=== PATIENT | male | born 1960 | race Caucasian/White ===

== ENCOUNTER 2020-03-24 10:52 | Observation (INO) | payer OTHER ==
--- OUTSIDE RECORDS SUMMARY | 2020-03-24 10:58 | XMS REPORT | Continuity of Care Document ---
:1960 Author Organization [facility] t Address [address] [place] [address] Care Team Providers Name Role Phone Unavailable Unavailable Unavailable Problems This patient has no known problems. Allergies, Adverse Reactions, Alerts This patient has no known allergies or adverse reactions. Medications This patient has no known medications. Procedures This patient has no known procedures. Encounters Start End Encounter Admission Attending Care Care Encounter Source Date/Time Date/Time Type Type Clinicians Facility Department ID 2019-06-25 Outpatient [facility] [id number] 09:19:46 l [facility] 2019-10-18 2019-10-18 Outpatient [facility] [id number] 11:35:00 11:35:00 l [facility] 2019-10-09 2019-10-09 Outpatient [facility] [id number] 05:27:00 05:27:00 l [facility] 2019-05-23 2019-05-23 Outpatient [facility] [id number] 13:32:00 13:32:00 l [facility] Results This patient has no known results.
[2020-03-24] MEDS ORDERED: METHYLPREDNISOLONE 125 MG INJ ONE (11:14)
[2020-03-24] MEDS ORDERED: dexAMETHasone 10 MG/ML VIAL ONE (11:15)
[2020-03-24] MEDS ORDERED: NA CHLORIDE 0.9% 1,000 ML ONE ×2 (11:15→13:12)
[2020-03-24] MEDS ORDERED: FAMOTIDINE 20 MG/2 ML VIAL IV ONE (11:15)
[2020-03-24] MEDS ORDERED: DIPHENHYDRAMINE 50 MG/ML VIAL ONE ×2 (11:15→11:17)
[2020-03-24] MEDS ORDERED: EPINEPHRINE/PF 1 MG/ML AMP ONE (11:15)
[2020-03-24 11:19] LABS: Absolute Lymphocytes (CBC) 1.6 K/uL (0.7-4.9); Basophils % 1.1 % (0-1.3); Hematocrit 41.9 % (39.6-49.0); Lymphocytes % 13.1 % (15.3-44.8); MPV 8.1 fL (7.6-11.3); RBC Red Blood Cell Count 4.85 M/uL (4.33-5.43)
[2020-03-24 11:24] LABS: Protime INR 1.12
[2020-03-24] MEDS ORDERED: ALBUTEROL 2.5 MG/3 ML NEB SOL ONE (11:28)
[2020-03-24] MEDS ORDERED: IPRATROPIUM BROM 0.5MG/2.5ML ONE (11:28)
--- NOTE | 2020-03-24 11:37 | RAD REPORT ---
EXAM DESCRIPTION: RAD - Chest Single View - 03/24/2020 11:21 am CLINICAL HISTORY: COUGH COMPARISON: April 2010 TECHNIQUE: AP portable chest image was obtained 03/24/2020 11:21 am . FINDINGS: Lungs are clear. Low lung volumes accentuate interstitial pattern. Heart and vasculature a re normal. No measurable pleural effusion and no pneumothorax. No acute bony abnormality seen. No acu te aortic findings suspected. IMPRESSION: No acute cardiopulmonary process. No significant change from comparison study.
[2020-03-24 11:55] LABS: ALT/SGPT 53 U/L (12-78); AST/SGOT 48 U/L (15-37); Albumin 3.1 g/dL (3.4-5.0); Alkaline Phosphatase 85 U/L (45-117); BUN Blood Urea Nitrogen 11 mg/dL (7-18); Bicarbonate 30 mmol/L (21-32); Bilirubin Direct 0.2 mg/dL (0-0.2); Bilirubin Total 0.9 mg/dL (0.2-1.0); Glucose Level 116 mg/dL (74-106); Magnesium 2.4 mg/dL (1.8-2.4); NT PRO-BNP 46 pg/mL (<125); Potassium 3.9 mmol/L (3.5-5.1); Protein, Total 8.5 g/dL (6.4-8.2); Sodium Level 134 mmol/L (136-145); Troponin (Emerg Dept Use Only) < 0.02 ng/mL (0.0-0.045)
--- NOTE | 2020-03-24 12:14 | EDPHYS ---
Physician Documentation [facility] Name: Walker Valdez Age: 59 yrs Sex: Male : 1960 Arrival Date: 03/24/2020 Time: 10:53 Bed 2 Private MD: Indra Arevalo HPI: 03/24 11:03 This 59 yrs old Male presents to ER via Ambulatory with complaints of apryl Allergic Reaction, Swelling Of Tongue. 11:03 The patient presents with difficulty swallowing, swelling of the lips, swelling of the apryl tongue. Onset: The symptoms/episode began/occurred 2 hour(s) ago. Associated signs and symptoms: The patient has no apparent associated signs or symptoms. Possible causes: The patient has no known obvious cause for the symptoms. At home the patient or guardian has treated the symptoms with nothing. Severity of symptoms: At their worst the symptoms were moderate. The patient has not experienced similar symptoms in the past. Historical: - Allergies: 11:02 "unkown abx"; em - Home Meds: 11:34 aspirin 325 mg Oral tab 1 tab once daily [Active]; ramipril 10 mg Oral cap 1 cap once ph daily [Active]; hydrocodone-acetaminophen 10-325 mg Oral tab 1 tab every 6 hours [Active]; cefadroxil 500 mg oral cap 1 cap every 8 hours [Active]; gabapentin 600 mg oral tab 1 tab 3 times per day [Active]; atorvastatin 80 mg oral tab 1 tab once daily [Active]; - PMHx: 11:02 Hypertension; Hyperlipidemia; Chronic pain; em - Immunization history:: Adult Immunizations unknown. - Social history:: Smoking status: unknown. ROS: 11:04 Constitutional: Negative for fever, chills, and weight loss, Eyes: Negative for injury, apryl pain, redness, and discharge, Neck: Negative for injury, pain, and swelling, Respiratory: Negative for shortness of breath, cough, wheezing, and pleuritic chest pain, Abdomen/GI: Negative for abdominal pain, nausea, vomiting, diarrhea, and constipation, Back: Negative for injury and pain, : Negative for injury, bleeding, discharge, and swelling, MS/Extremity: Negative for injury and deformity, Skin: Negative for injury, rash, and discoloration, Neuro: Negative for headache, weakness, numbness, tingling, and seizure, Psych: Negative for depression, anxiety, suicide ideation, homicidal ideation, and hallucinations, Allergy/Immunology: Negative for hives, rash, and allergies, Endocrine: Negative for neck swelling, polydipsia, polyuria, polyphagia, and marked weight changes, Hematologic/Lymphatic: Negative for swollen nodes, abnormal bleeding, and unusual bruising. 11:04 ENT: Positive for difficulty handling secretions, difficulty swallowing, rhinorrhea, tongue swelling, moderate. Exam: 11:04 Constitutional: This is a well developed, well nourished patient who is awake, alert, apryl and in no acute distress. Eyes: Pupils equal round and reactive to light, extra-ocular motions intact. Lids and lashes normal. Conjunctiva and sclera are non-icteric and not injected. Cornea within normal limits. Periorbital areas with no swelling, redness, or edema. Neck: Trachea midline, no thyromegaly or masses palpated, and no cervical lymphadenopathy. Supple, full range of motion without nuchal rigidity, or vertebral point tenderness. No Meningismus. Chest/axilla: Normal chest wall appearance and motion. Nontender with no deformity. No lesions are appreciated. Respiratory: Lungs have equal breath sounds bilaterally, clear to auscultation and percussion. No rales, rhonchi or wheezes noted. No increased work of breathing, no retractions or nasal flaring. Abdomen/GI: Soft, non-tender, with normal bowel sounds. No distension or tympany. No guarding or rebound. No evidence of tenderness throughout. Back: No spinal tenderness. No costovertebral tenderness. Full range of motion. Male : Normal genitalia with no discharge or lesions. Skin: Warm, dry with normal turgor. Normal color with no rashes, no lesions, and no evidence of cellulitis. MS/ Extremity: Pulses equal, no cyanosis. Neurovascular intact. Full, normal range of motion. Neuro: Awake and alert, GCS 15, oriented to person, place, time, and situation. Cranial nerves II-XII grossly intact. Motor strength 5/5 in all extremities. Sensory grossly intact. Cerebellar exam normal. Normal gait. Psych: Awake, alert, with orientation to person, place and time. Behavior, mood, and affect are within normal limits. 11:04 Head/face: Noted is swelling, that is moderate, of the left aspect of posterior pharynx, right aspect of posterior pharynx and tongue. 11:04 Cardiovascular: Rate: tachycardic, Rhythm: regular, Pulses: Pulses are 4+ in bilateral radial, brachial, femoral, popliteal, posterior tibial and and dorsalis pedis arteries.. Heart sounds: normal, Edema: is not appreciated, JVD: is not appreciated. Vital Signs: 10:58 Pulse 137; Resp 24; Pulse Ox 95% on R/A; em 11:03 BP 118 / 73; Weight 113.4 kg; Height 5 ft. 11 in. (180.34 cm); em 11:31 Temp 98.6(TE); tw2 11:31 BP 132 / 84; Pulse 117; Resp 18; Pulse Ox 100% on Nebulizer Mask; tw2 12:00 BP 143 / 71; Pulse 126; Resp 18; Pulse Ox 100% on 4 lpm NC; tw2 12:30 BP 109 / 52; Pulse 122; Resp 21; Pulse Ox 95% on 4 lpm NC; tw2 13:00 BP 120 / 73; Pulse 124; Resp 19; Pulse Ox 95% on 5 lpm NC; tw2 13:57 BP 120 / 70; Pulse 124; Resp 17; Pulse Ox 95% on 5 lpm NC; tw2 14:34 BP 129 / 88; Pulse 123; Resp 22; Pulse Ox 96% on 5 lpm NC; tw2 11:03 Body Mass Index 34.87 (113.40 kg, 180.34 cm) em MDM: 11:09 Differential diagnosis: anaphylaxis, angioedema, bronchospasm, foreign body or airway apryl obstruction urticaria. Data reviewed: vital signs, nurses notes, lab test result(s), EKG, radiologic studies, plain films. Data interpreted: school bus monitor: rate is 137 beats/min, rhythm is regular, Pulse oximetry: on room air is 95 %. Test interpretation: by ED physician or midlevel provider: ECG, plain radiologic studies. Counseling: I had a detailed discussion with the patient and/or guardian regarding: the historical points, exam findings, and any diagnostic results supporting the discharge/admit diagnosis, lab results, radiology results, the need for further work-up and treatment in the hospital. 11:12 Patient medically screened. [facility] 03/24 11:03 Order name: Basic Metabolic Panel; Complete Time: 12:12 [facility] 03/24 11:03 Order name: CBC with Diff; Complete Time: 12:12 [facility] 03/24 11:03 Order name: LFT's; Complete Time: 12:12 [facility] 03/24 11:03 Order name: Magnesium; Complete Time: 12:12 [facility] 03/24 11:03 Order name: NT PRO-BNP; Complete Time: 12:12 [facility] 03/24 11:03 Order name: PT-INR; Complete Time: 12:12 [facility] 03/24 11:03 Order name: Troponin (emerg Dept Use Only); Complete Time: 12:12 [facility] 03/24 11:03 Order name: XRAY Chest (1 view); Complete Time: 12:12 [facility] 03/24 14:06 Order name: CBC with Automated Diff [facility] 03/24 14:06 Order name: CBC with Automated Diff [facility] 03/24 14:06 Order name: Comprehensive Metabolic Panel [facility] 03/24 14:06 Order name: Comprehensive Metabolic Panel [facility] 03/24 11:03 Order name: EKG; Complete Time: 11:04 [facility] 03/24 11:03 Order name: Cardiac monitoring; Complete Time: 11:12 [facility] 03/24 11:03 Order name: EKG - Nurse/Tech; Complete Time: 11:24 [facility] 03/24 11:03 Order name: IV Saline Lock; Complete Time: 11:12 [facility] 03/24 11:03 Order name: Labs collected and sent; Complete Time: 11:12 [facility] 03/24 11:03 Order name: O2 Per Protocol; Complete Time: 11:12 [facility] 03/24 14:06 Order name: CONS Pharmacy Consult [facility] 03/24 14:06 Order name: Regular [facility] 03/24 11:03 Order name: O2 Sat Monitoring; Complete Time: 11:12 [facility] Administered Medications: 11:05 Drug: NS 0.9% 1000 ml Route: IV; Rate: 1 bolus; Site: right antecubital; tw2 12:30 Follow up: Response: No adverse reaction; IV Status: Completed infusion; IV Intake: tw2 1000ml 11:05 Drug: Benadryl 50 mg Route: IVP; Site: right antecubital; tw2 12:29 Follow up: Response: No adverse reaction tw2 11:07 Drug: EPINEPHrine 1mg/mL 1:1,000 0.4 ml Route: Sub-Q; Site: right upper arm; tw2 12:29 Follow up: Response: No adverse reaction tw2 11:07 Drug: SOLU-Medrol 125 mg Route: IVP; Site: right antecubital; tw2 12:29 Follow up: Response: No adverse reaction tw2 11:09 Drug: Pepcid 40 mg Route: IVP; Site: right antecubital; tw2 12:30 Follow up: Response: No adverse reaction tw2 11:14 Drug: Albuterol - atroVENT (3:1) (2.5 mg - 0.5 mg) 3 ml Route: Nebulizer; tw2 12:30 Follow up: Response: No adverse reaction tw2 11:18 Drug: Benadryl 25 mg Route: IVP; Site: right antecubital; tw2 12:29 Follow up: Response: No adverse reaction; Marked relief of symptoms tw2 12:23 Drug: Zofran (Ondansetron) 4 mg Route: IVP; Site: right antecubital; tw2 15:03 Follow up: Response: No adverse reaction tw2 12:25 Drug: morphine 4 mg {Note: RASS 0.} Route: IVP; Site: right antecubital; tw2 15:02 Follow up: Response: No adverse reaction; Pain is decreased; RASS: Alert and Calm (0) tw2 13:07 Drug: NS 0.9% 1000 ml Route: IV; Rate: 125 ml/hr; Site: right antecubital; tw2 15:02 Follow up: IV Status: Infusion continued upon admission tw2 Disposition: 03/24/20 12:13 Hospitalization ordered by Deborah Howard for Observation. Preliminary diagnosis is Angioneurotic edema. - Bed requested for Telemetry/MedSurg (observation). - Status is Observation. tw2 - Condition is Fair. - Problem is new. - Symptoms have improved. Signatures: Dispatcher [employer] Indra Olivarez MD MD cha Munoz, Edgar RN Radhika Lima RN RN ph Wise, Tara, RN RN tw2 Juan Coto RN RN ja1 Corrections: (The following items were deleted from the chart) 14:45 12:13 Hospitalization Ordered by Deborah Howard MD for Observation. Preliminary ja1 diagnosis is Angioneurotic edema. Bed requested for Telemetry/MedSurg (observation). Status is Observation. Condition is Fair. Problem is new. Symptoms have improved. apryl 15:13 14:45 03/24/2020 12:13 Hospitalization Ordered by Deborah Howard MD for Observation. tw2 Preliminary diagnosis is Angioneurotic edema. Bed requested for Telemetry/MedSurg (observation). Status is Observation. Condition is Fair. Problem is new. Symptoms have improved. ja1
--- NOTE | 2020-03-24 12:14 | ER ---
Nurse's Notes [facility] Name: Walker Valdez Age: 59 yrs Sex: Male : 1960 Arrival Date: 03/24/2020 Time: 10:53 Bed 2 Private MD: Diagnosis: Angioneurotic edema Presentation: 03/24 10:58 Chief complaint: Patient's son or daughter states: tongue swelling that started this em morning about 2 hours ago, pt reports difficulty swallowing and talking, takes Ramipril for BP, had recent knee SX 8 days ago, had 2 Benadryl CUSTOMER ENGAGEMENT REPRESENTATIVE, Dr. Shah at bedside. Coronavirus screen: Client denies travel out of the [place] in the last 14 days. Ebola Screen: Patient negative for fever greater than or equal to 101.5 degrees Fahrenheit, and additional compatible Ebola Virus Disease symptoms Patient denies exposure to infectious person. Patient denies travel to an Ebola-affected area in the 21 days before illness onset. No symptoms or risks identified at this time. Onset: The symptoms/episode began/occurred suddenly, 2 hour(s) ago. Anaphylaxis evaluation, angioedema. Initial Sepsis Screen: Does the patient meet any 2 criteria? HR > 90 bpm. No. Patient's initial sepsis screen is negative. Does the patient have a suspected source of infection? No. Patient's initial sepsis screen is negative. Risk Assessment: Do you want to hurt yourself or someone else? Patient reports no desire to harm self or others. Onset of symptoms was March 24, 2020. 10:58 Method Of Arrival: Ambulatory em 10:58 Acuity: LIZZETTE 1 em Historical: - Allergies: 11:02 "unkown abx"; em - Home Meds: 11:34 aspirin 325 mg Oral tab 1 tab once daily [Active]; ramipril 10 mg Oral cap 1 cap once ph daily [Active]; hydrocodone-acetaminophen 10-325 mg Oral tab 1 tab every 6 hours [Active]; cefadroxil 500 mg oral cap 1 cap every 8 hours [Active]; gabapentin 600 mg oral tab 1 tab 3 times per day [Active]; atorvastatin 80 mg oral tab 1 tab once daily [Active]; - PMHx: 11:02 Hypertension; Hyperlipidemia; Chronic pain; em - Immunization history:: Adult Immunizations unknown. - Social history:: Smoking status: unknown. Screenin:32 Abuse screen: Denies threats or abuse. Nutritional screening: No deficits noted. tw2 Tuberculosis screening: No symptoms or risk factors identified. Fall Risk None identified. Assessment: 10:55 Reassessment: provider at bedside at this time. tw2 11:25 General: Appears obese, well groomed, Behavior is calm, cooperative, quiet. Pain: tw2 Denies pain. Neuro: Level of Consciousness is awake, alert, obeys commands, Oriented to person, place, time, situation. Cardiovascular: Heart tones S1 S2 Patient's skin is warm and dry. Respiratory: Airway is compromised Respiratory effort is even, unlabored, Respiratory pattern is regular, symmetrical, Breath sounds are clear bilaterally. Respiratory: Parent/caregiver reports the patient having "swelling of his lip and tongue increased since last night". GI: Abdomen is round non-distended, obese, Bowel sounds present X 4 quads. : No signs and/or symptoms were reported regarding the genitourinary system. EENT: Parent/caregiver reports the patient having. Derm: No signs and/or symptoms reported regarding the dermatologic system. Skin is intact, is healthy with good turgor, Skin temperature is warm. Musculoskeletal: Range of motion: intact in all extremities. 12:00 Reassessment: Patient appears in no apparent distress at this time. Patient and/or tw2 family updated on plan of care and expected duration. Pain level reassessed. Patient states feeling better. 12:15 Reassessment: Patient appears in no apparent distress at this time. Patient and/or tw2 family updated on plan of care and expected duration. Pain level reassessed. Patient states feeling better. 12:45 Reassessment: Patient appears in no apparent distress at this time. Patient and/or tw2 family updated on plan of care and expected duration. Pain level reassessed. Patient states feeling better. 13:16 Reassessment: pt snoring asleep at this time, easily arousable. tw2 13:54 Reassessment: Patient appears in no apparent distress at this time. Patient and/or tw2 family updated on plan of care and expected duration. Pain level reassessed. 13:57 Reassessment: Patient states feeling better. tw2 14:34 Reassessment: Patient appears in no apparent distress at this time. Patient and/or tw2 family updated on plan of care and expected duration. Pain level reassessed. Vital Signs: 10:58 Pulse 137; Resp 24; Pulse Ox 95% on R/A; em 11:03 BP 118 / 73; Weight 113.4 kg; Height 5 ft. 11 in. (180.34 cm); em 11:31 Temp 98.6(TE); tw2 11:31 BP 132 / 84; Pulse 117; Resp 18; Pulse Ox 100% on Nebulizer Mask; tw2 12:00 BP 143 / 71; Pulse 126; Resp 18; Pulse Ox 100% on 4 lpm NC; tw2 12:30 BP 109 / 52; Pulse 122; Resp 21; Pulse Ox 95% on 4 lpm NC; tw2 13:00 BP 120 / 73; Pulse 124; Resp 19; Pulse Ox 95% on 5 lpm NC; tw2 13:57 BP 120 / 70; Pulse 124; Resp 17; Pulse Ox 95% on 5 lpm NC; tw2 14:34 BP 129 / 88; Pulse 123; Resp 22; Pulse Ox 96% on 5 lpm NC; tw2 11:03 Body Mass Index 34.87 (113.40 kg, 180.34 cm) em ED Course: 10:53 Patient arrived in ED. rg4 10:54 Bed in low position. Call light in reach. Side rails up X2. Adult w/ patient. Cardiac tw2 monitor on. Pulse ox on. NIBP on. Warm blanket given. 11:00 Indra Shah MD is Attending Physician. apryl 11:01 Triage completed. em 11:02 Arm band placed on. em 11:05 Initial lab(s) drawn, by mt, sent to lab. Inserted saline lock: 20 gauge in right ph antecubital area, using aseptic technique. Blood collected. 11:21 XRAY Chest (1 view) In Process Unspecified. EDMS 11:24 Jaclyn Crocker, GREG is Primary Nurse. tw2 12:13 Deborah Howard MD is Hospitalizing Provider. apryl 14:54 No provider procedures requiring assistance completed. Patient admitted, IV remains in tw2 place. Administered Medications: 11:05 Drug: NS 0.9% 1000 ml Route: IV; Rate: 1 bolus; Site: right antecubital; tw2 12:30 Follow up: Response: No adverse reaction; IV Status: Completed infusion; IV Intake: tw2 1000ml 11:05 Drug: Benadryl 50 mg Route: IVP; Site: right antecubital; tw2 12:29 Follow up: Response: No adverse reaction tw2 11:07 Drug: EPINEPHrine 1mg/mL 1:1,000 0.4 ml Route: Sub-Q; Site: right upper arm; tw2 12:29 Follow up: Response: No adverse reaction tw2 11:07 Drug: SOLU-Medrol 125 mg Route: IVP; Site: right antecubital; tw2 12:29 Follow up: Response: No adverse reaction tw2 11:09 Drug: Pepcid 40 mg Route: IVP; Site: right antecubital; tw2 12:30 Follow up: Response: No adverse reaction tw2 11:14 Drug: Albuterol - atroVENT (3:1) (2.5 mg - 0.5 mg) 3 ml Route: Nebulizer; tw2 12:30 Follow up: Response: No adverse reaction tw2 11:18 Drug: Benadryl 25 mg Route: IVP; Site: right antecubital; tw2 12:29 Follow up: Response: No adverse reaction; Marked relief of symptoms tw2 12:23 Drug: Zofran (Ondansetron) 4 mg Route: IVP; Site: right antecubital; tw2 15:03 Follow up: Response: No adverse reaction tw2 12:25 Drug: morphine 4 mg {Note: RASS 0.} Route: IVP; Site: right antecubital; tw2 15:02 Follow up: Response: No adverse reaction; Pain is decreased; RASS: Alert and Calm (0) tw2 13:07 Drug: NS 0.9% 1000 ml Route: IV; Rate: 125 ml/hr; Site: right antecubital; tw2 15:02 Follow up: IV Status: Infusion continued upon admission tw2 Intake: 12:30 IV: 1000ml; Total: 1000ml. tw2 Outcome: 12:13 Decision to Hospitalize by Provider. apryl 14:54 Admitted to Med/surg accompanied by tech, via wheelchair, room 205, Report called to tw2 GREG Smith 14:54 Condition: stable 14:54 Instructed on the need for admit. 15:13 Patient left the ED. tw2 Signatures: Dispatcher [employer] EDIndra Chahal MD MD cha Munoz, Edgar, RN RN praveen Monahan, Radhika, RN RN ph Jaclyn Crocker RN RN tw2 Jessie Correa 4
[2020-03-24] MEDS ORDERED: MORPHINE 4 MG/ML SYR ONE (12:36)
[2020-03-24] MEDS ORDERED: ONDANSETRON 4 MG/2 ML VIAL ONE (12:36)
[2020-03-24] MEDS ORDERED: ONDANSETRON 4 MG/2 ML VIAL IV PRN (13:59)
[2020-03-24] MEDS ORDERED: DIPHENHYDRAMINE 50 MG/ML VIAL IV PRN (13:59)
[2020-03-24] MEDS ORDERED: ACETAMINOPHEN 500 MG TAB PO PRN (13:59)
[2020-03-24] MEDS ORDERED: MORPHINE 2 MG/ML SYR IV PRN (13:59)
[2020-03-24] MEDS: NA CHLORIDE 0.9% 1,000 ML IV SCH (14:00)
[2020-03-24 15:38] VITALS: BMI 34.8
[2020-03-24] MEDS: METHYLPREDNISOLONE 125 MG INJ IV SCH ×2 (16:27→16:28)
[2020-03-24] MEDS ORDERED: HYDROCODONE/APAP 10/325 TAB PO PRN (20:00)
[2020-03-24] MEDS: ASPIRIN EC 81 MG TAB PO SCH (20:13)
[2020-03-24] MEDS: GABAPENTIN 300 MG CAP PO SCH (22:05)
[2020-03-24 22:37] VITALS: O2SAT 94
[2020-03-25] MEDS: METHYLPREDNISOLONE 125 MG INJ IV SCH ×2 (00:25→05:57)
[2020-03-25] MEDS: NA CHLORIDE 0.9% 1,000 ML IV SCH (03:23)
[2020-03-25 04:23] LABS: Absolute Lymphocytes (CBC) 0.7 K/uL (0.7-4.9); Basophils % 0.2 % (0-1.3); Hematocrit 37.7 % (39.6-49.0); Lymphocytes % 5.5 % (15.3-44.8); RBC Red Blood Cell Count 4.37 M/uL (4.33-5.43)
[2020-03-25 04:32] LABS: Albumin 2.8 g/dL (3.4-5.0); Bilirubin Total 0.5 mg/dL (0.2-1.0); Potassium 4.3 mmol/L (3.5-5.1); Protein, Total 7.7 g/dL (6.4-8.2)
[2020-03-25 05:13] LABS: Blood Morphology Comment NOT SEEN (NOT SEEN); Platelet Estimate ADEQ
[2020-03-25] MEDS: GABAPENTIN 300 MG CAP PO SCH (07:52)
[2020-03-25] MEDS: ASPIRIN EC 81 MG TAB PO SCH (07:52)
[2020-03-25 08:38] VITALS: BP 127/68; TEMP 98.1
--- NOTE | 2020-03-25 09:18 | P.HP ---
Certification for Inpatient Patient admitted to: Observation With expected LOS: <2 Midnights Patient will require the following post-hospital care: None Practitioner: I am a practitioner with admitting privileges, knowledge of patient current condition, hospital course, and medical plan of care. Services: Services provided to patient in accordance with Admission requirements found in Title 42 Section 412.3 of the Code of Federal Regulations Patient History Date of Service: 03/24/20 Reason for admission: Angioedema History of Present Illness: Patient is a 59-year-old gentleman came to the hospital with difficulty with breathing. He felt his tongue was swelling. He felt his airway with obstructing. He recently had surgery on his knee. He was taking pain medication but no other medicines. He decided come into the hospital for further evaluation. He was started on steroids and Benadryl. He is currently feeling better. He will be admitted to the hospital for observation. He has similar episode a few years ago. He is not really sure what caused it. He has been taking ramipril. Will go ahead and Dc that as Dawson inhibitors are notorious for calling angioedema. Will start him on amlodipine if he needs anything additional for blood pressure control Allergies ramipril Allergy (Mild, Verified 03/24/20 15:59) swollen tongue and mouth Home Medications: Aspirin 1 tab PO DAILY 03/24/20 Atorvastatin Calcium [Lipitor] 80 mg PO BEDTIME 03/24/20 Cefadroxil Hydrate [Duricef] 1 tab PO Q8H 03/24/20 Docusate [Colace Cap*] 1 tab PO DAILY PRN 03/24/20 Gabapentin 1 tab PO TID PRN 03/24/20 Hydrocodone 10/APAP 325 [[place] 10/325*] 1 tab PO Q6H PRN 03/24/20 Ramipril [Altace] 1 cap PO DAILY 03/24/20 - Past Medical/Surgical History Diabetic: No -: Hypertension -: Chrinic back pain -: Total knee replacement - Family History Mother Medical History: Hypertension Father Medical History: Heart disease, Diabetes, Stroke - Social History Smoking Status: Former smoker Alcohol use: Yes Caffeine use: Yes Place of Residence: Home Review of Systems 10-point ROS is otherwise unremarkable Physical Examination - Vital Signs Temperature: 98.1 F Blood Pressure: 127/68 Pulse: 108 Respirations: 20 Pulse Ox (%): 92 - Physical Exam General: Alert, In no apparent distress, Oriented x3 HEENT: Atraumatic, PERRLA, Mucous membr. moist/pink, EOMI, Sclerae nonicteric Neck: Supple, 2+ carotid pulse no bruit, No LAD, Without JVD or thyroid abnormality Respiratory: Clear to auscultation bilaterally, Normal air movement Cardiovascular: Regular rate/rhythm, Normal S1 S2, No murmurs Gastrointestinal: Normal bowel sounds, Soft and benign, Non-distended, No tenderness Musculoskeletal: No clubbing, No swelling, No tenderness Integumentary: No rashes Neurological: Normal gait, Normal speech, Normal strength at 5/5 x4 extr, Normal tone, Sensation intact, Cranial nerves 3-12 intact, Normal affect Lymphatics: No axilla or inguinal lymphadenopathy - Studies Laboratory Data (last 24 hrs) 03/24/20 11:05: PT 13.2 H, INR 1.12 03/24/20 11:05: WBC 11.8 H, Hgb 13.9, Hct 41.9, Plt Count 442 H 03/24/20 11:05: Sodium 134 L, Potassium 3.9, BUN 11, Creatinine 1.03, Glucose 116 H, Magnesium 2.4, Total Bilirubin 0.9, AST 48 H, ALT 53, Alkaline P hosphatase 85 Assessment & Plan - Problems (Diagnosis) (1) Angioedema Current Visit: Yes Status: Acute - Plan Plan: 1. IV steroid 2. IV Benadryl 3. Dc DAWSON-inhibitor 4. Amlodipine 5. EpiPen at discharge 6. GI and DVT prophylaxis Discharge Plan: Home Plan to discharge in: 24 Hours - Advance Directives Does patient have a Living Will: Yes Does patient have a Durable POA for Healthcare: No - Code Status/Comfort Care Code Status Assessed: Yes Code Status: Full Code Critical Care: No Time Spent Managing PTS Care (In Minutes): 35
--- NOTE | 2020-03-26 11:11 | P.DS ---
Discharge Date: 03/25/20 Disposition: ROUTINE DISCHARGE Discharge Condition: GOOD Reason for Admission: Angioedema - Problems (1) Angioedema Status: Acute Brief History of Present Illness: Patient is a 59-year-old gentleman came to the hospital with difficulty with breathing. He felt his tongue was swelling. He felt his airway with obstructing. He recently had surgery on his knee. He was taking pain medication but no other medicines. He decided come into the hospital for further evaluation. He was started on steroids and Benadryl. He is currently feeling better. He will be admitted to the hospital for observation. He has similar episode a few years ago. He is not really sure what caused it. He has been taking ramipril. Will go ahead and Dc that as Dawson inhibitors are notorious for calling angioedema. Will start him on amlodipine if he needs anything additional for blood pressure control Hospital Course: Patient has done well during hospital stay. Patient was given steroids and Benadryl and he is clinically doing much better. At this time, patient is stable for discharge. We will discharge on Medrol Dosepak and/or Benadryl. Stop DAWSON inhibitor and follow up with PCP. Continue with amlodipine. Vital Signs/Physical Exam: Temp Pulse Resp BP Pulse Ox 98.1 F 108 H 20 127/68 92 03/25/20 09:18 03/25/20 09:18 03/25/20 09:18 03/25/20 09:18 03/25/20 09:18 General: Alert, In no apparent distress, Oriented x3 Laboratory Data at Discharge: WBC 12.9 K/uL (4.3-10.9) H 03/25/20 03:41 Hgb 12.5 g/dL (13.6-17.9) L 03/25/20 03:41 Hct 37.7 % (39.6-49.0) L 03/25/20 03:41 Plt Count 395 K/uL (152-406) 03/25/20 03:41 PT 13.2 SECONDS (9.5-12.5) H 03/24/20 11:05 INR 1.12 03/24/20 11:05 Sodium 138 mmol/L (136-145) 03/25/20 03:41 Potassium 4.3 mmol/L (3.5-5.1) 03/25/20 03:41 BUN 18 mg/dL (7-18) 03/25/20 03:41 Creatinine 0.93 mg/dL (0.55-1.3) 03/25/20 03:41 Glucose 149 mg/dL (74-106) H 03/25/20 03:41 Magnesium 2.4 mg/dL (1.8-2.4) 03/24/20 11:05 Total Bilirubin 0.5 mg/dL (0.2-1.0) 03/25/20 03:41 AST 43 U/L (15-37) H 03/25/20 03:41 ALT 51 U/L (12-78) 03/25/20 03:41 Alkaline Phosphatase 89 U/L (45-117) 03/25/20 03:41 Home Medications: Aspirin 1 tab PO DAILY 03/24/20 Atorvastatin Calcium [Lipitor] 80 mg PO BEDTIME 03/24/20 Cefadroxil Hydrate [Duricef] 1 tab PO Q8H 03/24/20 Docusate [Colace Cap*] 1 tab PO DAILY PRN 03/24/20 Gabapentin 1 tab PO TID PRN 03/24/20 Hydrocodone 10/APAP 325 [[place] 10/325*] 1 tab PO Q6H PRN 03/24/20 Ramipril [Altace] 1 cap PO DAILY 03/24/20 Amlodipine [Norvasc*] 5 mg PO DAILY #30 tab 03/25/20 Epinephrine [Epipen] 0.3 mg IJ PRN PRN #1 auto.injct 03/25/20 Methylprednisolone [Medrol dosepack] 4 mg PO DIRECTED #1 marbella 03/25/20 New Medications: Epinephrine [Epipen] 0.3 mg IJ PRN PRN #1 auto.injct PRN Reason: anaphylaxis Methylprednisolone [Medrol dosepack] 4 mg PO DIRECTED #1 marbella Amlodipine [Norvasc*] 5 mg PO DAILY #30 tab Patient Discharge Instructions: OK TO DC IV AND DC HOME. FOLLOW-UP WITH PRIMARY CARE PROVIDER IN 1-2 WEEKS. Follow-up with watch engine operator in 2-4 weeks. RETURN TO THE ER IF symptoms worsen. CALL or TEXT DR. ROJAS AT [phone] IF ANY QUESTIONS REGARDING HOSPITAL STAY. PLEASE CALL THE FLOOR AT [phone] IF ANY MEDICATION OR NURSING QUESTIONS. Please list Dawson inhibitors as an allergy Diet: Regular Activity: Fall precautions Followup: Allison Hylton MD [Primary Care Provider] - Time spent managing pt's care (in minutes): 35
== END 2020-03-25 10:16 | disposition home or self-care (01) ==
LOC: ER 10:52 → ERHOLD 14:00 → 2ND 14:56
PROVIDERS: ADMIT Hospitalist; ATTEND Hospitalist
DX: T78.3XXA Angioneurotic edema, initial encounter (principal); Z20.828 Contact with and (suspected) exposure to other viral communicable diseases; I10 Essential (primary) hypertension; G89.29 Other chronic pain; M54.9 Dorsalgia, unspecified; Z96.659 Presence of unspecified artificial knee joint; Z87.891 Personal history of nicotine dependence
CPT/HCPCS: 36415; 71045; 80048; 80053; 80076; 83735; 83880; 84484; 85025; 85610; 93005; 96361; 96372; 96374; 96375; 99291; J0171; J1100; J1200; J2405; J2930; J7030; U0002